=== PATIENT | male | born 1960 | race Caucasian/White ===

== ENCOUNTER 2017-01-14 06:59 | Inpatient (IN) | payer MEDICAID, MEDICARE ==
--- NOTE | 2017-01-08 21:22 | HP ---
HISTORY AND PHYSICAL: DATE OF SURGERY: 01/14/17 PROCEDURE: Left total knee arthroplasty. CHIEF COMPLAINT: Left knee pain. HISTORY OF PRESENT ILLNESS: Mr. Briones is a 56-year-old gentleman with complaints of left knee pain secondary to advanced osteoarthritis. He has failed conservative management and has elected to proceed with a left total knee arthroplasty, which is scheduled for 01/14/[address] Manning. PAST MEDICAL HISTORY: 1. Chiari malformation type 1. 2. Chronic low back pain. 3. Stage 3 chronic kidney disease. 4. Hypothyroidism. 5. Left hemiplegia. 6. Left partial footdrop. 7. Obesity. 8. Hypertension. 9. Dyslipidemia. 10. Diabetes. 11. Sleep apnea. 12. Presence of a BARGE CAPTAIN shunt. PAST SURGICAL HISTORY: Left carpal tunnel release, left ulnar nerve release at the elbow, left knee arthroscopy, Chiari malformation surgery, tonsillectomy, adenoidectomy, BARGE CAPTAIN shunt replacement. CURRENT MEDICATIONS: 1. Aspirin 81 mg. 2. Atorvastatin calcium 20 mg at bedtime. 3. Lantus 100 units/mL. 4. Hydrochlorothiazide 25 mg once a day. 5. Levothyroxine 112 mcg once a day. 6. Pantoprazole 30 and 40 mg once a day. 7. Amlodipine/benazepril 10/20 once a day. 8. NovoLog and Victoza. 3. L-Thyroxine. ALLERGIES: No known drug allergies. FAMILY HISTORY: Heart disease, diabetes, lung cancer, hypertension, thyroid disease, and clotting disorders. SOCIAL HISTORY: He is a 56-year-old gentleman. He lives with his significant other. He does not smoke, use drugs or alcohol. REVIEW OF SYSTEMS: A complete 14-point review of systems was reviewed with the patient. It was positive for diabetes and thyroid disease. He denies history of DVT, PE, seizure, stroke, or anesthesia problems. PHYSICAL EXAMINATION GENERAL: He is a 56-year-old obese male. He is in no acute distress. VITAL SIGNS: He stands 6 feet 4 inches tall, weighs 340 pounds. His blood pressure 136/78. His heart rate is 101. HEENT: Normocephalic, atraumatic. NECK: Supple. No palpable lymph nodes. Trachea is midline. CARDIAC: Regular rate and rhythm. PULMONARY: The lungs are clear to auscultation bilaterally. ABDOMEN: Soft, nontender, nondistended. MUSCULOSKELETAL: Left lower extremity, the skin is intact. He has a known left hemiplegia causing weakness in the muscle group strengths in his left lower extremity. He has a partial footdrop with 1/5 ankle dorsiflexion EHL and plantar flexion straight. He has intact sensation, 2+ dorsalis pedis pules. The skin is intact. NEUROLOGIC: He is alert and oriented x3. Cranial nerves II through XII are intact. ASSESSMENT AND PLAN: Mr. Briones is a 56-year-old gentleman with complaints of left knee pain secondary to advanced osteoarthritis. He has failed conservative management and has elected to proceed with a left total knee arthroplasty. This surgery is scheduled for 01/14/[address] Manning discussed the risks and the benefits of the surgery at today's visit and all of his questions were answered. Coumadin, Colace, and Percocet were sent to his pharmacy for postoperative pain control and DVT prophylaxis. He will see Dr. Manning back 10 to 14 days after the surgery. He is scheduled for a stress test for and Friday of this week for cardiac clearance for his surgery next week. ROSSANA MASCORRO [id number]/[facility] #: [id number] MTDTameka
[~2017-01-14 06:59] MED LIST: Buffered Lidocaine 1% SYRIN* 3 ML/SYR SYRINGE INTRADERM ONE; Dexamethasone IV* 4 MG/ML 1 ML (4 MG) IV SLOW PU ONE; Famotidine IV* 10 MG/ML 2 ML (20 mg) IV ONE
[2017-01-14] MEDS ORDERED: HYDROmorphone* 1 MG/ML 1 ML SYR ONE ×3 (07:07→09:37)
[2017-01-14] MEDS ORDERED: fentaNYL* 50 MCG/ML 2 ML VIAL (100 MCG VIAL) ONE ×5 (07:07→13:38)
[2017-01-14] MEDS ORDERED: Morphine PF AMP (0.5MG/ML)* 5 MG/10 ML AMP ONE (07:08)
[2017-01-14] MEDS ORDERED: Midazolam* 1 MG/ML 5 ML VIAL (5 MG) ONE (07:08)
[2017-01-14] MEDS ORDERED: Dexamethasone IV* 4 MG/ML 1 ML (4 MG) ONE (07:09)
[2017-01-14] MEDS ORDERED: Famotidine IV* 10 MG/ML 2 ML (20 mg) ONE (07:09)
[2017-01-14] MEDS ORDERED: ceFAZolin 2 GM PREMIX(*) 2 GM/50 ML BAG IVPB ONE (07:09)
[2017-01-14] MEDS ORDERED: Dexmedetomidine* 200 MCG/2 ML 2 ML VIAL ONE (07:12)
[2017-01-14] MEDS ORDERED: Bupivacaine 0.5% SDV PF* 30 ML VIAL ONE (07:12)
[2017-01-14] MEDS ORDERED: DiMENhydriNATE IV* 50 MG/ML VIAL IV PUSH PRN (07:27)
[2017-01-14] MEDS ORDERED: PROCHLORPERAZINE INJ 5 MG/ML 2 ML VIAL IV PRN (07:27)
[2017-01-14] MEDS ORDERED: Scopolamine 1.5 mg* PATCH TRANSDERM PRN (07:27)
[2017-01-14] MEDS ORDERED: HYDROmorphone* 1 MG/ML 1 ML SYR IV PRN (07:27)
[2017-01-14] MEDS ORDERED: Ondansetron INJ* 2 MG/ML VIAL IV PRN (07:27)
[2017-01-14] MEDS ORDERED: Insulin REGULAR(*) 1 UNITS UNIT ONE ×3 (08:11→13:16)
[2017-01-14] MEDS ORDERED: ceFAZolin 1 GM in Dextrose (*) 1 GM/50 ML BAG IVPB ONE (08:28)
[2017-01-14] MEDS ORDERED: Insulin REGULAR(*) 1 UNITS UNIT SUBCUT ONE (10:24)
[2017-01-14] MEDS ORDERED: Ondansetron INJ* 2 MG/ML VIAL ONE (10:45)
[2017-01-14] MEDS ORDERED: Lidocaine 2% PF* 5 ML VIAL ONE (10:45)
[2017-01-14] MEDS ORDERED: Ketorolac INJ* 30 MG/ML 1 ML VIAL ONE (10:45)
[2017-01-14] MEDS ORDERED: Etomidate* 2 MG/ML 10 ML VIAL ONE (10:45)
[2017-01-14] MEDS ORDERED: Propofol* 10 MG/ML 20 ML BTL IV PUSH ONE (10:45)
[2017-01-14] MEDS ORDERED: Morphine INJ* 2 MG/ML 1 ML SYRINGE IV PRN (11:50)
[2017-01-14] MEDS ORDERED: Acetaminophen TAB* 325 MG PO PRN (11:50)
[2017-01-14] MEDS ORDERED: Polyethylene Glycol 3350* 17 GM PACKET PO PRN (11:50)
[2017-01-14] MEDS ORDERED: oxyCODONE/Acetamin 5/325 MG* TAB PO PRN (11:50)
[2017-01-14] MEDS ORDERED: diPHENhydraMINE IV* 50 MG/ML 1 ml VIAL (BENADRYL) IV PRN (11:50)
[2017-01-14] MEDS ORDERED: LACTULOSE* 30 ML UDC PO PRN (11:50)
[2017-01-14] MEDS ORDERED: Ondansetron TAB* 4 MG PO PRN (11:50)
[2017-01-14] MEDS ORDERED: Bisacodyl SUPP* 10 MG SUPP PR PRN (11:50)
[2017-01-14] MEDS ORDERED: Insulin LISPRO* 1 UNITS UNIT SUBCUT ONE (12:00)
[2017-01-14] MEDS: fentaNYL* 50 MCG/ML 2 ML VIAL (100 MCG VIAL) IV PRN ×2 (12:33→13:38)
--- NOTE | 2017-01-14 12:49 | RAD ---
INDICATION: Left total knee replacement COMPARISON: December 06, 2016 TECHNIQUE: 2 portable views were obtained. FINDINGS: There is left knee arthroplasty. Both femoral and tibial components appear well seated. There is no overlying cooling jacket. IMPRESSION: POSTOPERATIVE LEFT KNEE ARTHROPLASTY
[2017-01-14] MEDS ORDERED: Dextrose 50% Syringe 50 ML* 25 GM/50 ML SYRINGE IV PUSH PRN ×2 (14:44→14:46)
[2017-01-14] MEDS: oxyCODONE/Acetamin 5/325 MG* TAB PO PRN ×2 (16:07→20:19)
[2017-01-14] MEDS ORDERED: Warfarin TAB(*) 6 MG PO ONE (17:00)
[2017-01-14] MEDS ORDERED: Insulin LISPRO* 1 UNITS UNIT SUBCUT SCH (17:00)
[2017-01-14] MEDS: ceFAZolin 1 GM in Dextrose (*) 1 GM/50 ML BAG IVPB SCH (17:16)
[2017-01-14] MEDS: Insulin LISPRO* 1 UNITS UNIT SUBCUT SCH (17:20)
[2017-01-14] MEDS ORDERED: Insulin GLARGINE(*) 1 UNITS UNIT SUBCUT SCH (21:00)
[2017-01-14] MEDS: Insulin GLARGINE(*) 1 UNITS UNIT SUBCUT SCH (21:08)
[2017-01-14] MEDS: Docusate CAP* 100 MG PO SCH (21:08)
[2017-01-14] MEDS: Metoprolol Tartrate TAB* 25 MG PO SCH (21:08)
[2017-01-14] MEDS: Atorvastatin* 10 MG TAB PO SCH (21:08)
--- NOTE | 2017-01-14 21:48 | CONS ---
CONSULTATION REPORT: DATE OF CONSULT: 01/14/17 ATTENDING PHYSICIAN: Dr. Heather Manning. CONSULTING PHYSICIAN: Dr. Charly Pepe (dictation provided by Veena Dwyer NP). REASON FOR CONSULT: Medical co-management in a patient in for left total knee arthroplasty. HISTORY OF PRESENT ILLNESS: Mr. Briones is a 56-year-old male with past medical history of Chiari malformation type 1, stage 3 chronic kidney disease, hypothyroidism, insulin-dependent diabetes, and sleep apnea, who presents today to the hospital for planned elective left total knee arthroplasty. Mr. Briones has apparently failed outpatient conservative management and opted to proceed with surgery today with Dr. Manning. Please see the dictated H and P for complete details. Mr. Briones states that prior to coming in for surgery today, he was doing well with no complaints. He had no fevers, no chills. No chest pain, no cough. No nausea, vomiting, diarrhea, or abdominal pain. He states that his blood sugars have been well controlled and under 200 on his high-dose insulin regimen along with Victoza. PAST MEDICAL HISTORY: 1. Chiari malformation type 1 with HEALTH AND WELLNESS COORDINATOR shunt. 2. Chronic low back pain. 3. Stage 3 CKD. 4. Hypothyroidism. 5. Left hip hemiplegia with left partial footdrop secondary to Chiari malformation type 1. 6. Obesity. 7. Hypertension. 8. Dyslipidemia. 9. Type 2 diabetes, insulin dependent. 10. Sleep apnea. PAST SURGICAL HISTORY: Left carpal tunnel release, left ulnar nerve release at the elbow, left knee arthroscopy, Chiari malformation surgery with HEALTH AND WELLNESS COORDINATOR shunt placement, tonsillectomy, adenoidectomy. MEDICATIONS: As outpatient are: 1. Aspirin 81 mg daily. 2. Atorvastatin 20 mg daily. 3. Lantus 120 mg b.i.d. 4. NovoLog insulin 66 units with breakfast, 64 units with lunch, and 50 units with dinner. 5. Hydrochlorothiazide 25 mg p.o. daily. 6. Levothyroxine 112 mcg p.o. daily. 7. Pantoprazole 40 mg a day. 8. Amlodipine/benazepril 10/20 daily. 9. Victoza daily. 10. L-thyroxine daily. ALLERGIES: No known drug allergies. FAMILY HISTORY: History of heart disease, diabetes, lung cancer, hypertension, thyroid disease, and clotting disorders in the family. SOCIAL HISTORY: The patient lives with his significant other, Norma, who is his healthcare proxy. There is no report of smoking, alcohol, or drug use. REVIEW OF SYSTEMS: A 14-point review of systems was completed with Mr. Briones and all those not mentioned above were negative. PHYSICAL EXAM: Vital Signs: Temperature 97.7, pulse rate 87, respiratory rate 14, O2 saturation 95% currently on 8 L of oxygen in the PACU, blood pressure 114 /64. General: Mr. Briones is sitting up in the bed. He is in no acute distress. He is calm and cooperative to my examination. Neuro: He is alert and oriented x3. Moves all extremities equally. There is no facial asymmetry or focal weakness. Extraocular movements are intact. Heart: S1 and S2. No murmur, rub, gallop, and regular. Lungs are clear to auscultation bilaterally with no accessory muscle use and good aeration. Abdomen is soft and nontender with bowel sounds positive x4. Extremities: No cyanosis or edema. Skin is intact. The surgical site was not assessed as it is postop day #0. LABORATORY DATA: No preoperative labs are obtained, at least are not available in the computer. ASSESSMENT AND PLAN: Mr. Briones is 56-year-old male with past medical history of Budd-Chiari malformation type 1 with ventriculoperitoneal shunt and persistent left hemiplegia with left footdrop as well as insulin-dependent diabetes, hypertension, and sleep apnea, who presents to the hospital with plan for left total knee arthroplasty. Our recommendations are as follows: 1. Left total knee arthroplasty: Management will be per orthopedic services. The patient will have PT and OT services. He will have pain medication with bowel regimen and we will monitor his H and H. 2. Type 2 diabetes: Plan to continue the patient's home insulin regimen. He has had elevated blood sugars so far up to 350, and I think he will tolerate his home med regimen well and will likely need additional insulin as well. 3. Hypertension: Plan to hold hydrochlorothiazide and benazepril given his chronic kidney disease and diabetes and concern for development of worsening kidney injury. Continue metoprolol. 4. Hypothyroidism: Continue levothyroxine. 5. Hyperlipidemia: Continue simvastatin. 6. Gastroesophageal reflux disease: Continue pantoprazole. 7. DVT prophylaxis: Per Ortho. 8. Code status is full code. TIME SPENT: Approximately 45 minutes was spent in the consultation of this patient, more than half the time was spent with the patient at the bedside, reviewing the events leading up to this hospitalization, performing the physical examination, and reviewing the [place] [id number]/[facility] #: [id number] REJI
[2017-01-15] MEDS: ceFAZolin 1 GM in Dextrose (*) 1 GM/50 ML BAG IVPB SCH ×2 (00:56→08:35)
[2017-01-15] MEDS: oxyCODONE/Acetamin 5/325 MG* TAB PO PRN ×4 (01:00→18:46)
[2017-01-15] MEDS: Levothyroxine TAB* 112 MCG TAB PO SCH (05:53)
[2017-01-15 06:51] LABS: Hematocrit 43 % (42-52); Hemoglobin 14.5 g/dl (14.0-18.0)
[2017-01-15 07:01] LABS: BUN/Creatinine Ratio 17.8 (8-20); Calcium 8.9 mg/dL (8.6-10.3); EGFR African American 61.5 (>60); EGFR Non-African American 47.9 (>60); Potassium 4.9 mmol/L (3.5-5.0)
[2017-01-15] MEDS: Omeprazole CAP* 20 MG PO SCH (07:35)
[2017-01-15] MEDS ORDERED: Insulin LISPRO* 1 UNITS UNIT SUBCUT SCH (08:00)
[2017-01-15] MEDS: Insulin GLARGINE(*) 1 UNITS UNIT SUBCUT SCH ×2 (08:02→21:21)
[2017-01-15] MEDS: Insulin LISPRO* 1 UNITS UNIT SUBCUT SCH ×3 (08:03→17:13)
[2017-01-15] MEDS: Enoxaparin(*) 30 MG/0.3 ML SYR SUBCUT SCH (08:05)
[2017-01-15] MEDS: amLODIPine TAB* 5 MG PO SCH (08:35)
[2017-01-15] MEDS: Metoprolol Tartrate TAB* 25 MG PO SCH ×2 (08:35→21:20)
[2017-01-15] MEDS: Docusate CAP* 100 MG PO SCH ×2 (08:35→21:20)
[2017-01-15] MEDS ORDERED: Hydrochlorothiazide TAB* 25 MG PO SCH (09:00)
[2017-01-15] MEDS ORDERED: Liraglutide (NF) 18 MG/3 ML SUBCUT SCH (09:00)
--- NOTE | 2017-01-15 10:43 | PN ---
Progress Note - Progress Note SOAP: Subjective: []Patient seen OOB in chair. Left knee pain mild after Percocet. Feels he has regained some motion in his left foot that was weak prior to surgery. Objective: [] Vital Signs Temp 97.9 F 01/15/17 07:20 Pulse 81 01/15/17 07:20 Resp 18 01/15/17 09:35 BP 155/84 01/15/17 07:20 Pulse Ox 100 01/15/17 08:00 Intake & Output 01/14/17 01/15/17 01/15/17 18:59 06:59 18:59 Intake Total 4100 4511 640 Output Total 575 3475 500 Balance 3525 1036 140 Weight 339 lb Intake: IV Fluids 3600 951 20 CEFAZOLIN 3GM IV 100 LR 3500 951 20 Medicated IV 60 cefazolin 60 Oral 500 3560 560 Output: Urine 500 Esteban 575 3475 Laboratory Results - last 24 hr 01/14/17 01/14/17 01/14/17 11:54 12:53 13:52 Hgb Hct INR (Anticoag Therapy) Sodium Potassium Chloride Carbon Dioxide Anion Gap BUN Creatinine Est GFR ( Amer) Est GFR (Non-Af Amer) BUN/Creatinine Ratio Glucose POC Glucose (mg/dL) 334 H 355 H 350 H Calcium 01/14/17 01/15/17 01/15/17 16:55 06:31 06:31 Hgb 14.5 Hct 43 INR (Anticoag Therapy) 0.98 Sodium Potassium Chloride Carbon Dioxide Anion Gap BUN Creatinine Est GFR ( Amer) Est GFR (Non-Af Amer) BUN/Creatinine Ratio Glucose POC Glucose (mg/dL) 293 H Calcium 01/15/17 01/15/17 06:31 07:29 Hgb Hct INR (Anticoag Therapy) Sodium 133 Potassium 4.9 Chloride 99 L Carbon Dioxide 28 Anion Gap 6 BUN 27 H Creatinine 1.52 H Est GFR ( Amer) 61.5 Est GFR (Non-Af Amer) 47.9 BUN/Creatinine Ratio 17.8 Glucose 210 H POC Glucose (mg/dL) 221 H Calcium 8.9 Left knee [place] is dry and intact calf NT has active DF and inversion of his ankle which he states was weak prior to surgery sensation intact Assessment: []s/p Left total knee arthroplasty POD #1 Plan: []PT/OT WBAT LLE Coumadin with Lovenox bridge: 8mg today Medicine following Home friday
--- NOTE | 2017-01-15 12:21 | PN ---
Subjective Date of Service: 01/15/17 Interval History: Patient seen and examined at bedside. Pt denies fever, chills, shortness of breath, chest discomfort, N/V/D. Pt states that his pain is adequately controlled. Family History: Unchanged from Admission Social History: Unchanged from Admission Past Medical History: Unchanged from Admission Objective Active Medications: Acetaminophen (Tylenol Tab*) 650 mg PO Q4H PRN Reason: PAIN OR TEMPERATURE Amlodipine Besylate (Norvasc Tab*) 10 mg PO QAM BE Atorvastatin Calcium (Lipitor*) 10 mg PO BEDTIME BE Bisacodyl (Dulcolax Supp*) 10 mg UT DAILY PRN Reason: constipation Dextrose (D50w Syringe 50 Ml*) 12.5 gm IV PUSH .FOR FS < 60 - SS PRN Reason: FS < 60 Diphenhydramine HCl (Benadryl Iv*) 12.5 mg IV Q6H PRN Reason: PRURITIS Docusate Sodium (Colace Cap*) 100 mg PO BID [facility] Enoxaparin Sodium (Lovenox(*)) 30 mg SUBCUT Q24H [facility] Lactated Ringer's (Lactated Ringers 1000 Ml Bag*) 1,000 mls @ 100 mls/hr IV PER RATE [facility] Insulin Glargine (Lantus(*)) 120 units SUBCUT BID [facility] Insulin Human Lispro (Humalog*) 66 units SUBCUT 0800 BE Insulin Human Lispro (Humalog*) 64 units SUBCUT 1200 BE Insulin Human Lispro (Humalog*) 50 units SUBCUT 1700 BE Lactulose (Lactulose*) 30 ml PO Q6H PRN Reason: constipation Levothyroxine Sodium (Synthroid Tab*) 112 mcg PO DAILY@0600 BE Magnesium Hydroxide (Milk Of Magnesia Liq*) 30 ml PO Q6H PRN Reason: constipation Metoprolol Tartrate (Lopressor Tab*) 25 mg PO BID BE Morphine Sulfate (Morphine Inj (Syringe)*) 2 mg IV Q2H PRN Reason: PAIN Omeprazole (Prilosec Cap*) 20 mg PO DAILY@0730 [facility] Ondansetron HCl (Zofran Tab*) 4 mg PO Q6H PRN Reason: NAUSEA Oxycodone HCl (Roxycodone Tab*) 10 mg PO Q4H PRN Reason: SEVERE PAIN Oxycodone/Acetaminophen (Percocet 5/325 Tab*) 1 tab PO Q3H PRN Reason: PAIN - MODERATE Oxycodone/Acetaminophen (Percocet 5/325 Tab*) 2 tab PO Q3H PRN Reason: PAIN - MODERATE Pharmacy Profile Note (Scopolomine Patch Remove*) 1 note PATCH OFF Q72H ONE Stop: 01/17/17 07:31 Pharmacy Profile Note (Coumadin Daily Reminder*) 1 note FOLLOW UP 1700 EB Polyethylene Glycol/Electrolytes (Miralax*) 17 gm PO DAILY PRN Reason: Constipation Vital Signs 01/14/17 01/14/17 01/14/17 12:30 12:33 12:45 Temperature Pulse Rate 83 82 Respiratory 18 21 18 Rate Blood Pressure 95/57 108/54 (mmHg) O2 Sat by Pulse 92 94 Oximetry 01/14/17 01/14/17 01/14/17 13:00 13:15 13:30 Temperature Pulse Rate 80 84 81 Respiratory 18 18 12 Rate Blood Pressure 110/52 107/65 115/61 (mmHg) O2 Sat by Pulse 93 93 95 Oximetry 01/14/17 01/14/17 01/14/17 13:38 13:45 14:00 Temperature 97.7 F Pulse Rate 87 84 Respiratory 12 14 18 Rate Blood Pressure 114/64 127/74 (mmHg) O2 Sat by Pulse 95 Oximetry 01/14/17 01/14/17 01/14/17 14:15 14:30 14:45 Temperature Pulse Rate 84 89 88 Respiratory 19 18 18 Rate Blood Pressure 124/67 126/65 108/91 (mmHg) O2 Sat by Pulse 94 97 96 Oximetry 01/14/17 01/14/17 01/14/17 15:00 16:11 17:20 Temperature 98.0 F 97.8 F Pulse Rate 88 93 93 Respiratory 18 15 Rate Blood Pressure 144/80 145/76 138/95 (mmHg) O2 Sat by Pulse 96 96 94 Oximetry 01/14/17 01/14/17 01/14/17 17:24 19:10 20:00 Temperature 97.8 F 97.3 F Pulse Rate 91 Respiratory 18 18 Rate Blood Pressure 143/63 (mmHg) O2 Sat by Pulse 96 Oximetry 01/14/17 01/14/17 01/14/17 20:19 20:59 22:19 Temperature Pulse Rate 90 Respiratory 18 18 20 Rate Blood Pressure 136/80 (mmHg) O2 Sat by Pulse 97 Oximetry 01/15/17 01/15/17 01/15/17 00:08 01:00 03:00 Temperature 97.4 F Pulse Rate 78 Respiratory 20 20 20 Rate Blood Pressure 130/81 (mmHg) O2 Sat by Pulse 99 Oximetry 01/15/17 01/15/17 01/15/17 03:34 07:20 07:35 Temperature 98.0 F 97.9 F Pulse Rate 71 81 Respiratory 20 16 18 Rate Blood Pressure 116/70 155/84 (mmHg) O2 Sat by Pulse 97 100 Oximetry 01/15/17 01/15/17 01/15/17 08:00 09:35 11:24 Temperature 97.5 F Pulse Rate 70 Respiratory 18 18 16 Rate Blood Pressure 128/69 (mmHg) O2 Sat by Pulse 100 98 Oximetry Oxygen Devices in Use Now: None Appearance: NAD, laying in bed Eyes: No Scleral Icterus, PERRLA Ears/Nose/Mouth/Throat: Mucous Membranes Moist Neck: NL Appearance and Movements; NL JVP, Trachea Midline Respiratory: Symmetrical Chest Expansion and Respiratory Effort, Clear to Auscultation Cardiovascular: NL Sounds; No Murmurs; No JVD, RRR Abdominal: NL Sounds; No Tenderness; No Distention Extremities: No Edema Skin: - - Dressing to left knee clean, dry and intact Neurological: Alert and Oriented x 3, NL Muscle Strength and Tone Lines/Tubes/Other Access: Clean, Dry and Intact Peripheral IV - site benign Nutrition: Taking PO's Result Diagrams: 01/15/17 06:31 01/15/17 06:31 Microbiology and Other Data: Microbiology 01/14/17 09:37 Wound Gram Stain - Final Wound - Knee Left Tissue Culture - Preliminary No Growth Day 1 01/14/17 09:37 Anaerobic Culture - Preliminary Misc Source (See Comment) - Knee Left No Growth Day 1 Assess/Plan/Problems-Billing Assessment: Mr. Briones is a 56 yo male with PMH significant for Type 1 Chiari malformation with TOOL LIAISON shunt, persistent left hemiplegia with left foot drop, DM, HTN, and sleep apnea who presented to the hospital for an elective left total knee arthroplasty. - Patient Problems (1) Status post total left knee replacement Code(s): Z96.652 - PRESENCE OF LEFT ARTIFICIAL KNEE JOINT SNOMED Code(s): 4351704362352 Comment: - POD #1 - Managment per orthopedics - Continue PT/OT - Trend HH (2) Diabetes Code(s): E11.9 - TYPE 2 DIABETES MELLITUS WITHOUT COMPLICATIONS SNOMED Code(s) : 42860134 Comment: - Glucose 220-300's - Continue Lantus and Lispro (3) HTN (hypertension) Code(s): I10 - ESSENTIAL (PRIMARY) HYPERTENSION SNOMED Code(s): 84568373 Comment: - Controlled - Continue metoprolol, resume benazepril in the morning if blood pressures continue to be elevated - Continue to hold HCTZ (4) Hypothyroidism Code(s): E03.9 - HYPOTHYROIDISM, UNSPECIFIED SNOMED Code(s): 19538939 Comment: - Continue levothyroxine (5) HLD (hyperlipidemia) Code(s): E78.5 - HYPERLIPIDEMIA, UNSPECIFIED SNOMED Code(s): 13222764 Comment: - Continue statin (6) GERD (gastroesophageal reflux disease) Code(s): K21.9 - GASTRO-ESOPHAGEAL REFLUX DISEASE WITHOUT ESOPHAGITIS SNOMED Code(s): 192101322 Comment: - Continue Omeprazole (7) DVT prophylaxis Code(s): OSH6384 - SNOMED Code(s): 524439341 Comment: - Lovenox to Warfarin bridge per Ortho (8) Full code status Code(s): Z78.9 - OTHER SPECIFIED HEALTH STATUS SNOMED Code(s): 684714160 Status and Disposition: Inpatient. Disposition per Orthopedics
--- NOTE | 2017-01-15 14:35 | OP ---
DATE OF OPERATION: 01/14/17 - ROOM #343 DATE OF : 62 SURGEON: Heather Manning MD AERONAUTICAL ENGINEERING PROFESSOR: ROSSANA Bustos ANESTHESIOLOGIST: Dr. Reyna. ANESTHESIA: General with adductor nerve block. PRE-OP DIAGNOSIS: Severe end-stage degenerative osteoarthritis of the left knee joint with retained hardware from prior surgery. POST-OP DIAGNOSIS: Severe end-stage degenerative osteoarthritis of the left knee joint with retained hardware from prior surgery. OPERATIVE PROCEDURE: Left total knee arthroplasty with removal of hardware. INDICATIONS: Mr. Briones is a 56-year-old gentleman with years of increasingly severe left knee pain. He has Arnold-Chiari malformation with some spinal stenosis. On the left lower extremity, he has long-term weakness and footdrop. He did have prior injury with unspecified-type fracture of the proximal tibia many years ago, treated with surgery and has a retained wire in the anterior proximal tibia. The patient developed increasingly severe left knee pain due to arthritis. He failed conservative treatments with anti- inflammatories, pain medications, intraarticular injections, physical therapy, brace wear, ambulatory assistive devices, and arthroscopy. Due to continued pain and decreased quality of life, he elected to undergo left total knee arthroplasty. Radiographs showed [id number] contact in the medial compartment. Informed consent was obtained from the patient. He understood the risks of the procedure included but not were limited to bleeding, infection, damage to nearby structures, continued pain, need for further surgery, intraoperative fracture, nerve palsy, knee stiffness, loss of motion, hardware failure, loosening, stroke, heart attack, blood clot, and . He wished to proceed. TOURNIQUET TIME: 60 minutes. ESTIMATED BLOOD LOSS: 300 cc. COMPLICATIONS: None. SPECIMEN: Multiple culture swabs were obtained and sent to Pathology, some soft tissue and synovium from the left knee joint was also obtained and sent to Pathology. Wire removed from the tibia was sent to Pathology. COMPLICATIONS: None. HARDWARE USED: This is [employer] cemented total knee hardware. For the antibiotics, two packages of Simplex cement. For the femur, a size 7 left posterior stabilized Legion Oxinium femoral component. For the tibia, a size 7 left tibial baseplate. For the patella, a 35-mm 3-peg all-poly patella and for the insert, an 11-mm posterior stabilized articular insert size 7-8. INTRAOPERATIVE FINDINGS: Intraoperatively, the patient was noted to have a wire that was in the anterior middle portion of the tibia. This was intraarticular partially. Wire was removed with wire cutters and pliers. He was noted to have severe end-stage arthritis of the knee joint with loss of cartilage in a tricompartmental fashion. 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 DESCRIPTION OF PROCEDURE: Mr. Briones was identified in the preanesthesia unit. His left lower extremity was marked as the correct operative side. Informed consent was signed and placed in the chart. The patient was taken to the operating room and placed under general anesthesia with an adductor nerve block. Tourniquet was placed on the left thigh. Left lower extremity was prepped and draped in the usual sterile fashion. A Esteban catheter had been placed. Preop time-out was made to correctly identify the patient's side and site. Appropriate perioperative antibiotics were given within 1 hour of incision. The patient's prior incision which was in the pattern of medial parapatellar arthrotomy was used and this was extended superiorly about 5 cm. Dissection was sharply done down to the extensor mechanism. A new 10 blade was used to make a standard medial parapatellar arthrotomy. Patella was subluxed laterally. Multiple culture swabs were obtained and sent for aerobic and anaerobic cultures. Some soft tissues seemed to be stained with hemosiderin. This was a germán orange color. The synovium was excised and sent to Pathology. Electrocautery was used to subperiosteally elevate the soft tissue off the superomedial tibia to the midsagittal plane. Osteophytes were carefully removed. The knee was flexed up. The anterior horn of the lateral meniscus and ACL were sharply released and excised. Along the anterior tibia, wire was visualized. This was intraarticular placement. scrap cutter was used to cut the wire centrally. Pliers were then then used to straighten the wire. Dissection around the patellar tendon insertion showed the twisted end of the wire loop. This was untwisted carefully. After careful use of force, the two wires were removed without difficulty. There was no visible fracture of the tibial bone. A drill was used to enter the distal femur. Intramedullary distal femoral cutting guide was pinned on the distal femur. Lateral femoral condylar hypoplasia was noted. This was accounted for. The distal femoral cut was made within an oscillating saw. Next, the external rotation guide was pinned on the distal femur and the femur was sized to a size 7. A size 7 multi-cutting jig was pinned on the distal femur. Oscillating saw was used to make the appropriate chamfer cuts. Any bony fragments were carefully removed. The PCL was completely released at this point. Extramedullary tibial cutting guide was pinned on the proximal tibia. The oscillating saw was used to make the proximal tibial cut. The proximal tibial cut was made perpendicular to the mechanical axis of the tibia. The proximal tibial bone was carefully removed. The knee was brought out to full extension and a spacer block had excellent fit with full extension. There was good medial and lateral ligamentous balancing. Flexion and extension gaps were well balanced. The knee was flexed up. Lamina asphalt heater tender was placed both medially and laterally. Any remaining meniscus was carefully removed using electrocautery. Posterior capsule was checked for any osteophytes using a curved osteotome. Tibial tray and drop jesus were placed once again to ensure proximal tibial cut was satisfactory. In short, this was noted to be a satisfactory tibial cut. Trial 7 left femur was impacted on to the distal femur. Box cut osteotome and reamer were used to prepare the bone for the posterior stabilized implant. Next , a size 7 tibial tray trial and 9-mm insert trial were placed. The knee was taken through a range of motion. The knee had excellent range of motion and good patellofemoral tracking. The patella was everted. 9 mm of patellar bone and cartilage was removed with an oscillating saw. The patella was size to a size 35. The 3 peg holes were drilled through the 35 guide. 35 patella was placed and the knee was taken through a range of motion. There was good patellofemoral tracking. All trials were carefully removed. The tibia was subluxed anteriorly. Proximal tibia was sized to a size 7. The proximal tibia was prepared using a size 7 keel punch. All bony cut surfaces were copiously irrigated with sterile saline and dried. Final implants were cemented into place starting with the tibia followed by the femur and lastly patella. An 11-mm insert was placed while the knee was brought out into full extension. The cemented was allowed to fully cure and tourniquet was turned down at 60 minutes. Once the cement was fully cured, the insert trial was removed. Posterior capsule was checked for any bleeding. Any excess cement was removed from around the implants. Size 11 posterior stabilized insert was chosen. This was locked into position on the tibial tray. Stability of the insert on the tibial tray was checked and rechecked and noted to be stable. Final range of motion with full extension to 125 degrees of flexion with good patellofemoral tracking. The knee was copiously irrigated with sterile saline. Extensor mechanism was closed using interrupted #1 Vicryl's. The rest of the incision was closed in a layered fashion using 0 and 2-0 Vicryl's. The skin was closed using running 3-0 nylon suture. Sterile Xeroform, 4x4s, and Webril were used to cover the incision. David wrap and cold pack were placed over this. The patient's anesthesia was reversed without difficulty. He was taken to the PACU in stable condition. Intended weight-bearing will be weightbearing as tolerated. Intended DVT prophylaxis will be Coumadin with a Lovenox bridge. [id number]/[facility] #: [id number] REJI
[2017-01-15] MEDS: oxyCODONE TAB* 5 MG TAB PO PRN ×2 (14:49→22:35)
[2017-01-15] MEDS ORDERED: Warfarin TAB(*) 4 MG PO ONE (18:00)
[2017-01-15] MEDS ORDERED: Insulin GLARGINE(*) 1 UNITS UNIT SUBCUT SCH (21:00)
[2017-01-15] MEDS: Atorvastatin* 10 MG TAB PO SCH (21:20)
[2017-01-15] MEDS: TIGER BALM TOPICAL SCH (21:25)
[2017-01-15] MEDS: Magnesium Hydroxide LIQ* 30 ML UDC PO PRN (22:36)
[2017-01-16] MEDS: oxyCODONE/Acetamin 5/325 MG* TAB PO PRN (02:43)
[2017-01-16] MEDS: Levothyroxine TAB* 112 MCG TAB PO SCH (05:32)
[2017-01-16 06:41] LABS: Hematocrit 41 % (42-52); Hemoglobin 13.7 g/dl (14.0-18.0)
[2017-01-16] MEDS: Omeprazole CAP* 20 MG PO SCH (07:06)
[2017-01-16] MEDS: oxyCODONE TAB* 5 MG TAB PO PRN ×3 (07:06→15:08)
[2017-01-16] MEDS: TIGER BALM TOPICAL SCH (07:11)
[2017-01-16 07:41] LABS: Comments Flag Yes
[2017-01-16] MEDS: amLODIPine TAB* 5 MG PO SCH (08:22)
[2017-01-16] MEDS: Docusate CAP* 100 MG PO SCH (08:22)
[2017-01-16] MEDS: Metoprolol Tartrate TAB* 25 MG PO SCH (08:22)
[2017-01-16] MEDS: Magnesium Hydroxide LIQ* 30 ML UDC PO PRN (08:22)
[2017-01-16] MEDS: Insulin GLARGINE(*) 1 UNITS UNIT SUBCUT SCH (08:23)
[2017-01-16] MEDS: Enoxaparin(*) 30 MG/0.3 ML SYR SUBCUT SCH (08:23)
[2017-01-16] MEDS: Insulin LISPRO* 1 UNITS UNIT SUBCUT SCH ×2 (08:23→11:43)
--- NOTE | 2017-01-16 11:40 | PN ---
Progress Note - Progress Note SOAP: Subjective: Pt. is alert, nad. Objective: LLE - dressing changed, inc c/d/i. distally nvi. Vital Signs: Temp Pulse Resp BP Pulse Ox 98.1 F 86 18 139/77 99 01/16/17 07:24 01/16/17 07:24 01/16/17 11:08 01/16/17 07:24 01/16/17 08:00 Laboratory Results - last 24 hr 01/15/17 01/15/17 01/15/17 11:40 16:35 16:40 Hgb Hct INR (Anticoag Therapy) POC Glucose (mg/dL) 162 H 49 L 52 L 01/15/17 01/15/17 01/15/17 17:00 18:01 21:09 Hgb Hct INR (Anticoag Therapy) POC Glucose (mg/dL) 52 L 103 196 H 01/16/17 01/16/17 01/16/17 01:18 05:36 06:09 Hgb 13.7 L Hct 41 L INR (Anticoag Therapy) POC Glucose (mg/dL) 185 H 147 H 01/16/17 01/16/17 01/16/17 06:09 08:08 11:14 Hgb Hct INR (Anticoag Therapy) 1.02 POC Glucose (mg/dL) 159 H 164 H Assessment: 56 yo M pod 2 s/p LTKA Plan: wbat lle pt/ot 10 mg coumadin today, lovenox today plan d/c to home with vns this afternoon or tomorrow am
[2017-01-16 11:52] VITALS: BP 114/65
--- NOTE | 2017-01-16 14:58 | PN ---
Subjective Date of Service: 01/16/17 Interval History: Patient seen and examined at bedside. Pt states that he is feeling well today and ready to go home. Denies fever, chills, shortness of breath, chest discomfort, N/V/D. Family History: Unchanged from Admission Social History: Unchanged from Admission Past Medical History: Unchanged from Admission Objective Active Medications: Acetaminophen (Tylenol Tab*) 650 mg PO Q4H PRN Reason: PAIN OR TEMPERATURE Amlodipine Besylate (Norvasc Tab*) 10 mg PO QAM BE Atorvastatin Calcium (Lipitor*) 10 mg PO BEDTIME BE Bisacodyl (Dulcolax Supp*) 10 mg MD DAILY PRN Reason: constipation Dextrose (D50w Syringe 50 Ml*) 12.5 gm IV PUSH .FOR FS < 60 - SS PRN Reason: FS < 60 Diphenhydramine HCl (Benadryl Iv*) 12.5 mg IV Q6H PRN Reason: PRURITIS Docusate Sodium (Colace Cap*) 100 mg PO BID [facility] Enoxaparin Sodium (Lovenox(*)) 30 mg SUBCUT Q24H [facility] Lactated Ringer's (Lactated Ringers 1000 Ml Bag*) 1,000 mls @ 100 mls/hr IV PER RATE [facility] Insulin Glargine (Lantus(*)) 60 units SUBCUT BID [facility] Insulin Human Lispro (Humalog*) 66 units SUBCUT 0800 BE Insulin Human Lispro (Humalog*) 64 units SUBCUT 1200 BE Insulin Human Lispro (Humalog*) 50 units SUBCUT 1700 [facility] Lactulose (Lactulose*) 30 ml PO Q6H PRN Reason: constipation Levothyroxine Sodium (Synthroid Tab*) 112 mcg PO DAILY@0600 [facility] Magnesium Hydroxide (Milk Of Magnesia Liq*) 30 ml PO Q6H PRN Reason: constipation Metoprolol Tartrate (Lopressor Tab*) 25 mg PO BID [facility] Morphine Sulfate (Morphine Inj (Syringe)*) 2 mg IV Q2H PRN Reason: PAIN Pto: [place] (Ointment) 1 dose TOPICAL BID [facility] Omeprazole (Prilosec Cap*) 20 mg PO DAILY@0730 [facility] Ondansetron HCl (Zofran Tab*) 4 mg PO Q6H PRN Reason: NAUSEA Oxycodone HCl (Roxycodone Tab*) 10 mg PO Q4H PRN Reason: SEVERE PAIN Oxycodone/Acetaminophen (Percocet 5/325 Tab*) 1 tab PO Q3H PRN Reason: PAIN - MODERATE Oxycodone/Acetaminophen (Percocet 5/325 Tab*) 2 tab PO Q3H PRN Reason: PAIN - MODERATE Pharmacy Profile Note (Scopolomine Patch Remove*) 1 note PATCH OFF Q72H ONE Stop: 01/17/17 07:31 Pharmacy Profile Note (Coumadin Daily Reminder*) 1 note FOLLOW UP 1700 BE Polyethylene Glycol/Electrolytes (Miralax*) 17 gm PO DAILY PRN Reason: Constipation Warfarin Sodium (Coumadin Tab(*)) 10 mg PO ONCE@1700 ONE Stop: 01/16/17 17:01 Vital Signs 01/15/17 01/15/17 01/15/17 15:30 15:51 16:31 Temperature 97.8 F Pulse Rate 76 Respiratory 16 18 Rate Blood Pressure 122/67 (mmHg) O2 Sat by Pulse 97 97 Oximetry 01/15/17 01/15/17 01/15/17 18:46 19:42 19:55 Temperature 98.1 F Pulse Rate 92 Respiratory 18 17 16 Rate Blood Pressure 150/87 (mmHg) O2 Sat by Pulse 98 Oximetry 01/15/17 01/16/17 01/16/17 23:43 00:35 02:43 Temperature 97.3 F Pulse Rate 79 Respiratory 18 18 16 Rate Blood Pressure 117/72 (mmHg) O2 Sat by Pulse 96 Oximetry 01/16/17 01/16/17 01/16/17 02:48 04:43 07:06 Temperature 97.9 F Pulse Rate 77 Respiratory 16 18 Rate Blood Pressure 101/50 (mmHg) O2 Sat by Pulse 95 Oximetry 01/16/17 01/16/17 01/16/17 07:24 08:00 09:06 Temperature 98.1 F Pulse Rate 86 Respiratory 16 16 16 Rate Blood Pressure 139/77 (mmHg) O2 Sat by Pulse 99 99 Oximetry 01/16/17 01/16/17 01/16/17 11:08 11:47 13:08 Temperature 99.2 F Pulse Rate 78 Respiratory 18 18 18 Rate Blood Pressure 114/65 (mmHg) O2 Sat by Pulse 98 Oximetry Oxygen Devices in Use Now: None Appearance: NAD, sitting up in chair Eyes: No Scleral Icterus Ears/Nose/Mouth/Throat: Mucous Membranes Moist Respiratory: Symmetrical Chest Expansion and Respiratory Effort, Clear to Auscultation Cardiovascular: NL Sounds; No Murmurs; No JVD, RRR Abdominal: NL Sounds; No Tenderness; No Distention Skin: - - Dressing to left knee clean, dry and intact Neurological: Alert and Oriented x 3, NL Muscle Strength and Tone Lines/Tubes/Other Access: Clean, Dry and Intact Peripheral IV - site benign Nutrition: Taking PO's Result Diagrams: 01/16/17 06:09 01/15/17 06:31 Microbiology and Other Data: Microbiology 01/14/17 09:37 Wound Gram Stain - Final Wound - Knee Left Tissue Culture - Preliminary No Growth Day 1 01/14/17 09:37 Anaerobic Culture - Preliminary Misc Source (See Comment) - Knee Left No Growth Day 1 Assess/Plan/Problems-Billing Assessment: Mr. 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 - Patient Problems (1) Status post total left knee replacement Code(s): Z96.652 - PRESENCE OF LEFT ARTIFICIAL KNEE JOINT SNOMED Code(s): 6558968632547 Comment: - POD #2 - Managment per orthopedics - Continue PT/OT - HH stable (2) Diabetes Code(s): E11.9 - TYPE 2 DIABETES MELLITUS WITHOUT COMPLICATIONS SNOMED Code(s) : 81270952 Comment: - Glucose 50's last evening, 140-190's today - Continue Lantus at decreased dose and Novolog at home (3) HTN (hypertension) Code(s): I10 - ESSENTIAL (PRIMARY) HYPERTENSION SNOMED Code(s): 52468856 Comment: - Controlled - Continue metoprolol, resume benazepril at discharge - Consider holding HCTZ for now as BP has been soft (4) Hypothyroidism Code(s): E03.9 - HYPOTHYROIDISM, UNSPECIFIED SNOMED Code(s): 51898416 Comment: - Continue levothyroxine (5) HLD (hyperlipidemia) Code(s): E78.5 - HYPERLIPIDEMIA, UNSPECIFIED SNOMED Code(s): 74871614 Comment: - Continue statin (6) GERD (gastroesophageal reflux disease) Code(s): K21.9 - GASTRO-ESOPHAGEAL REFLUX DISEASE WITHOUT ESOPHAGITIS SNOMED Code(s): 262253384 Comment: - Continue Omeprazole (7) DVT prophylaxis Code(s): TRD9745 - SNOMED Code(s): 294088640 Comment: - per Ortho (8) Full code status Code(s): Z78.9 - OTHER SPECIFIED HEALTH STATUS SNOMED Code(s): 054997277 Status and Disposition: Inpatient. Disposition per Orthopedics
[2017-01-16] MEDS ORDERED: Warfarin TAB(*) 10 MG PO ONE (17:00)
[2017-01-17] MEDS ORDERED: Scopolomine PATCH Remove* 1 NOTE MISC PATCH OFF ONE (07:30)
--- NOTE | 2017-01-17 10:02 | DS ---
DISCHARGE SUMMARY: DATE OF ADMISSION: 01/14/17 DATE OF DISCHARGE: 01/16/17 ADMISSION DIAGNOSIS: Severe end-stage osteoarthritis of the left knee with retained hardware from prior surgery. DISCHARGE DIAGNOSIS: Severe end-stage osteoarthritis of the left knee with retained hardware from prior surgery. PROCEDURE PERFORMED: Left total knee arthroplasty with removal of hardware, left proximal tibia. HOSPITAL COURSE: The patient is a 56-year-old male who has had severe knee pain , which became intolerable. He was noted to have previous surgery with retained hardware in the proximal tibia and also has a history of Arnold Chiari malformation with spinal stenosis and weakness of dorsiflexion in the left foot. He failed conservative management with antiinflammatories, pain medications, intra-articular cortisone injections, physical therapy, brace application and ambulatory assistive devices as well as arthroscopic surgery. Due to his ongoing severe pain and decreased quality of life, he elected to proceed with the aforementioned procedure on 01/14/17. He was taken to the operating room under the care of Dr. Heather Manning and tolerated the procedure well. He left the operating room in stable condition. He progressed satisfactorily with his physical therapy and occupational therapy goals, bearing weight as tolerated on the left lower extremity. He felt that he regained some of the motion in his left foot, that being dorsiflexion and inversion, that was not present prior to his surgical procedure. He did not require a blood transfusion postoperatively. It was felt on postop day #2, that he had mastered his physical therapy and occupational therapy goals and was found to be stable medically and orthopedically for discharge to home on the date of 01/16/17. CONDITION ON DISCHARGE: The patient is afebrile. His vital signs are stable. His left knee incision is healing without evidence of infection. His calf is nontender and soft. He does have some active dorsiflexion, albeit slightly weak , the left ankle. His sensation is at baseline. It was felt that it would be prudent to send him home on a regular aspirin 325 mg p.o. b.i.d. with food, as he did not become therapeutic on Coumadin on postoperative day #2. Therefore, the patient was instructed to not take the Coumadin and take aspirin 325 p.o. b.i.d. with food. He understands. He will continue with his physical therapy exercise program. He will continue with the Colace and the Percocet as prescribed preoperatively. He may shower but will avoid submerging his left knee wound in bathtub water. Recommend a followup in the office in roughly 10 [address] Manning for re-evaluation. He will call the office if he has increased knee pain, swelling, any noted redness or drainage, calf pain or swelling, fever, chills, shortness of breath or chest pain. ROSSANA ALLEN [id number]/[facility] #: [id number]
== END 2017-01-16 15:15 | disposition home health service (06) | DRG 470 ==
LOC: AA 06:59 → SSU 15:16
PROVIDERS: ADMIT Orthopaedic Surgery Adult Reconstructive Orthopaedic Surgery; ATTEND Orthopaedic Surgery Adult Reconstructive Orthopaedic Surgery
PROC: 0QPH04Z Removal of Internal Fixation Device from Left Tibia, Open Approach (ICD-10-PCS; 2017-01-14)
PROC: 0SRD0J9 Replacement of Left Knee Joint with Synthetic Substitute, Cemented, Open Approach (ICD-10-PCS; principal; 2017-01-14 08:15)
DX: M17.12 Unilateral primary osteoarthritis, left knee (principal); E11.22 Type 2 diabetes mellitus with diabetic chronic kidney disease; E11.649 Type 2 diabetes mellitus with hypoglycemia without coma; G81.94 Hemiplegia, unspecified affecting left nondominant side; Z68.41 Body mass index [BMI] 40.0-44.9, adult; G89.29 Other chronic pain; M54.5 Low back pain; N18.3 Chronic kidney disease, stage 3 (moderate); E03.9 Hypothyroidism, unspecified; E66.9 Obesity, unspecified; I12.9 Hypertensive chronic kidney disease with stage 1 through stage 4 chronic kidney disease, or unspecified chronic kidney disease; E78.5 Hyperlipidemia, unspecified; M21.372 Foot drop, left foot; K21.9 Gastro-esophageal reflux disease without esophagitis; M51.36 Other intervertebral disc degeneration, lumbar region; Z87.891 Personal history of nicotine dependence; Z82.49 Family history of ischemic heart disease and other diseases of the circulatory system; Z80.1 Family history of malignant neoplasm of trachea, bronchus and lung; Z83.49 Family history of other endocrine, nutritional and metabolic diseases; Q72.892 Other reduction defects of left lower limb; Z18.89 Other specified retained foreign body fragments; Z98.2 Presence of cerebrospinal fluid drainage device
CPT/HCPCS: 36415; 80048; 85014; 85018; 85610; 87070; 87073; 87205; 88300; 88304; 88305; 88311; A9270-GY; C1776; J0690; J1100; J1170; J1650; J1885; J2250; J2405; J2704; J3010